=== PATIENT | male | born 1965 | race African-American/Black ===

== ENCOUNTER 2017-08-03 09:31 | Emergency (ER) | payer MEDICAID ==
[~2017-08-03] VITALS: Ht 182.9 cm; Wt 104.3 kg
[2017-08-03 09:51] VITALS: BP 118/84
[2017-08-03] MEDS ORDERED: TETANUS-DIPTH-ACEL PERTUSSIS 0.5ML SYRG IM ONE (10:00)
== END 2017-08-03 09:59 | disposition home or self-care (01) ==
LOC: ER 09:31
DX: S51.832A Puncture wound without foreign body of left forearm, initial encounter (principal); W22.8XXA Striking against or struck by other objects, initial encounter; Y93.89 Activity, other specified; Y92.89 Other specified places as the place of occurrence of the external cause; Y99.8 Other external cause status